=== PATIENT | female | born 1990 | race Caucasian/White ===

== ENCOUNTER 2018-03-14 06:04 | Outpatient (CLI) | payer BC ==
[~2018-03-14] VITALS: Ht 167.6 cm; Wt 67.3 kg
[~2018-03-14 06:04] MED LIST: MOTRIN 600600 MG/TAB PO; PERCOCET 325 MG1 TA2 PO; PRENATAL1 TA7 PO
[2018-03-14 06:19] VITALS: BP 121/79; PULSE 81; TEMP 97.8
[2018-03-14 07:10] VITALS: BP 120/69; PULSE 81
[2018-03-14 09:40] VITALS: BP 131/70; PULSE 86
[2018-03-14 11:30] VITALS: BP 134/73; PULSE 94
[2018-03-14 12:30] VITALS: BP 116/66; PULSE 122
== END 2018-03-14 12:45 | disposition home or self-care (01) ==
LOC: LDRO 06:04
DX: O47.03 False labor before 37 completed weeks of gestation, third trimester (principal); Z3A.35 35 weeks gestation of pregnancy
CPT/HCPCS: J0702; J3105; J7120

== ENCOUNTER → 2018-12-25 | Outpatient (CLI) | payer OTHER | LOC: COL.RAD 13:30 | DX: E04.1 Nontoxic single thyroid nodule (principal); R59.0 Localized enlarged lymph nodes ==

== ENCOUNTER 2020-09-03 05:50 | Inpatient (IN) | payer OTHER ==
[2020-09-03] VITALS (17 sets, daily range): BP systolic 110–142; BP diastolic 64–91; PULSE 71–90; TEMP 97.9–98.2
[~2020-09-03] VITALS: Ht 167.6 cm; Wt 71.4 kg
--- NOTE | 2020-09-03 05:50 | NUR ---
Ambulatory to unit with report of SROM 0445. Cts off and on all night. oriented to room, monitor, plan of care. Questions invited and answered.
--- NOTE | 2020-09-03 06:15 | NUR ---
REPORT RECIEVED FROM QUYEN BARKSDALE AND JUANA Benitez RN. PATIENT HERE RESTING IN BED, BREATHING THROUGH CONTRACTIONS, PATIENT STATES HER WATER BROKE AT 0445. CONSENTS SIGNED BY PATIENT. EDUCATION PACKET GIVEN. IV RUNNING, ASSESMENT REVIEWED PATIENT REQUESTS EPIDURAL AT 0640. YAZMIN SAWYER CALLED AT THIS TIME AT BEDSIDE AT 0655
[2020-09-03 06:42] LABS: HEMATOCRIT 40.3 % (37.0-47.0); HEMOGLOBIN 12.6 g/dl (12.5-16.0); MEAN CELL VOLUME 88 fl (80.0-100.0); MEAN CORPUSCULAR HEMOGLOBIN 28 pg (27.0-31.0); MEAN CORPUSCULAR HGB CONC 31 g/dl (33.0-37.0); MEAN PLATELET VOLUME 10.4 fl (7.4-10.4); PLATELET COUNT 248 K/mm3 (130-400); RED BLOOD COUNT 4.59 M/mm3 (4.10-5.30); REDCELL DISTRIBUTION WIDTH-CV 13.8 % (11.5-14.5)
--- NOTE | 2020-09-03 07:41 | NUR ---
[facility] OUT [facility] 08[facility] FROM COVID POSTIVIE
--- NOTE | 2020-09-03 08:09 | NUR ---
BY DR SAHU. VIABLE MALE INTANT DELIVERED, NADIA. TO MOTHERS CHEST. IN CARE OF QUYEN EMANUEL. PLACENTA SPON DELIVERED AT 0813. FUNDAL MASSAGE PROVIDED. OXYTOCIN STARTED AT 0813. PERINEUM INTACT. CEDRIC CARE PROVIDED. ICE PACK TO PERINEUM. RECOVERY STARTED AT 0815.
[2020-09-03 08:36] LABS: BAND 3 % (0-10); EOSINOPHIL 3 % (0-4); LYMPHOCYTE 24 % (20.0-51.0); METAMYELOCYTE 1 % (0-0); NEUTROPHILS 63 % (42.0-75.2)
[2020-09-03 08:37] LABS: PLATELET ESTIMATE NORMAL (NORMAL)
[2020-09-04 00:43] VITALS: BP 110/69; PULSE 85; TEMP 97.8
[2020-09-04 05:15] VITALS: BP 119/82; PULSE 82; TEMP 98
[2020-09-04 08:15] VITALS: BP 103/74; PULSE 89; TEMP 98.1
== END 2020-09-04 12:30 | disposition home or self-care (01) | DRG 807 ==
LOC: LDR 05:50 → OB 09:39
PROVIDERS: ADMIT Obstetrics & Gynecology
PROC: 10E0XZZ Delivery of Products of Conception, External Approach (ICD-10-PCS; principal; 2020-09-03)
DX: O48.0 Post-term pregnancy (principal); Z37.0 Single live birth; Z3A.40 40 weeks gestation of pregnancy; O99.52 Diseases of the respiratory system complicating childbirth; J45.909 Unspecified asthma, uncomplicated
CPT/HCPCS: J2405; J2590; J2795; J7120

== ENCOUNTER 2021-02-11 23:45 | Emergency (ER) | payer OTHER ==
[~2021-02-11] VITALS: Ht 170.2 cm; Wt 54.5 kg
[2021-02-12 00:02] VITALS: TEMP 98.1
[2021-02-12 00:29] LABS: BASO % 0.3 % (0.0-2.0); EOS % 0.2 % (0-4.0); GRAN # 10.2 (1.4-6.5); GRAN % 88.3 % (42.2-75.2); HEMATOCRIT 40.5 % (37.0-47.0); HEMOGLOBIN 13.9 g/dl (12.5-16.0); LYMPH # 0.7 (1.2-3.4); LYMPH % 6.3 % (20.0-51.0); MEAN CELL VOLUME 90 fl (80.0-100.0); MEAN CORPUSCULAR HEMOGLOBIN 31 pg (27.0-31.0); MEAN CORPUSCULAR HGB CONC 34 g/dl (33.0-37.0); MEAN PLATELET VOLUME 9.2 fl (7.4-10.4); MONO # 0.5 (0.1-0.6); MONO % 4.5 % (1.7-9.3); PLATELET COUNT 226 K/mm3 (130-400); RED BLOOD COUNT 4.49 M/mm3 (4.10-5.30); REDCELL DISTRIBUTION WIDTH-CV 12.4 % (11.5-14.5)
[2021-02-12 00:42] LABS: ALANINE AMINOTRANSFERASE 22 U/L (4-34); ALBUMIN 4.9 gm/dL (3.5-5.0); ALKALINE PHOSPHATASE 160 U/L (50-136); ANION GAP 15 mmol/L (7-16); AST,SGOT 33 U/L (15-37); BILIRUBIN,TOTAL 0.9 mg/dL (0.0-1.0); BLOOD UREA NITROGEN 13 mg/dL (7-17); CALCIUM 9.3 mg/dL (8.4-10.2); CARBON DIOXIDE 20 mmol/L (22-30); CHLORIDE 104 mmol/L (98-107); CREATININE, serum 0.62 (0.52-1.25); GLUCOSE 147 mg/dL (74-106); POTASSIUM 3.8 mmol/L (3.4-5.0); SODIUM 140 mmol/L (137-145); TOTAL PROTEIN 8.2 gm/dL (6.4-8.2)
[2021-02-12 00:53] LABS: TROPONIN-I < 0.012 ng/mL (0.000-0.035)
[2021-02-12] MEDS ORDERED: ATIVAN 1MG T1 MG/TAB PO (01:30)
[2021-02-12 01:34] VITALS: BP 125/60; PULSE 106
== END 2021-02-12 02:10 | disposition home or self-care (01) ==
LOC: COL.ER 23:45
PROVIDERS: Personal Emergency Response Attendant
DX: F41.9 Anxiety disorder, unspecified (principal); J45.909 Unspecified asthma, uncomplicated
CPT/HCPCS: J2060; J7030